=== PATIENT | female | born 1935 | race Caucasian/White ===

== ENCOUNTER → 2016-09-12 | Outpatient (CLI) | payer OTHER ==
[~2016-09-12] MED LIST: ALPRAZOLAM 0.0.25 M1 PO; CALCIUM 600 +1 EAC9 PO; CENTRUM SILVER1 EAC1 PO; CLOBETASOL PROP60 G3 TP; CRESTOR10 MG PO; DILTIAZEM ER120 M1 PO; ELESTRIN144 GM TD; OCUVITE TABLET1 EAC1 PO; PLAVIX 75 MG TA75 M1 PO; POTASSIUM20 PO; SUPER B COMPLE1 EAC2 PO; VITAMIN B-650 M1 PO; VITAMIN E400 UNIT PO; VITAMINC500 PO
== END ==
LOC: RAD 02:34
DX: Z12.31 Encounter for screening mammogram for malignant neoplasm of breast (principal)

== ENCOUNTER → 2017-09-18 | Outpatient (CLI) | payer OTHER | LOC: RAD 01:46 | DX: Z12.31 Encounter for screening mammogram for malignant neoplasm of breast (principal) ==

== ENCOUNTER → 2018-09-21 | Outpatient (CLI) | payer OTHER | LOC: RAD 13:55 | DX: Z12.31 Encounter for screening mammogram for malignant neoplasm of breast (principal) ==

== ENCOUNTER → 2018-09-28 | Outpatient (CLI) | payer OTHER | LOC: ULTRA 11:43 | DX: N63.10 Unspecified lump in the right breast, unspecified quadrant (principal) ==

== ENCOUNTER → 2019-09-23 | Outpatient (CLI) | payer OTHER | LOC: RAD 10:03 → BC 11:00 → RAD 12:30 | DX: Z12.31 Encounter for screening mammogram for malignant neoplasm of breast (principal) ==

== ENCOUNTER → 2020-12-19 | Outpatient (CLI) | payer OTHER | LOC: BC 11-28 10:14 | PROVIDERS: ATTEND Family Medicine | DX: Z12.31 Encounter for screening mammogram for malignant neoplasm of breast (principal) ==